=== PATIENT | male | born 1960 | race Caucasian/White ===

== ENCOUNTER 2018-03-07 01:07 | Observation (INO) ==
[2018-03-07 01:28] LABS: Baso # (Auto) 0.1 th/mm3 (0.0-0.2); Baso % (Auto) 0.8 % (0.0-2.0); Eos # (Auto) 0.2 th/mm3 (0.0-0.4); Eos % (Auto) 3.1 % (0.0-4.0); Hemoglobin 13.5 gm/dL (13.0-17.0); Lymph # (Auto) 1.2 th/mm3 (1.0-4.8); Mean Corpuscular HGB Conc 34.7 % (32.0-36.0); Mean Corpuscular Hemoglobin 33.2 pg (27.0-34.0); Mean Corpuscular Volume 95.7 fL (80.0-100.0); Mean Platelet Volume 7.9 fL (7.0-11.0); Mono # (Auto) 0.7 th/mm3 (0.0-0.9); Mono % (Auto) 9.6 % (0.0-8.0); Neut % (Auto) 69.5 % (16.0-70.0); Platelet Count 159 th/mm3 (150-450); Red Blood Count 4.07 mil/mm3 (4.50-5.90); Red Cell Distribution Width 12.9 % (11.6-17.2); White Blood Count 7.2 th/mm3 (4.0-11.0)
[2018-03-07 01:36] LABS: Activated Partial Thrombo Time 28.6 sec (23.4-31.7); Prothrombin Time 10.1 sec (9.8-11.6)
[2018-03-07 01:43] LABS: Carbon Dioxide 24.3 meq/L (21.0-32.0)
[2018-03-07 01:44] LABS: Calcium 8.8 mg/dL (8.5-10.1)
--- NOTE | 2018-03-07 01:49 | ED ---
HPI General Chief complaint: Medical Clearance Stated complaint: Medical Time Seen by Provider: 03/07/18 01:09 Source: patient Mode of arrival: ambulatory Limitations: no limitations History of Present Illness HPI narrative: The patient is a 58-year-old male who presents to the emergency department as a transfer from [facility] emergency department for a possible fractured penis. The patient states he injected medications earlier tonight into the penis in order to engage in intercourse. The patient states he was engaged in intercourse when suddenly the penis folded on itself and he has significant discomfort. The pain radiates into the scrotum. He does note there is bruising and ecchymosis of the shaft of the penis which is tender to palpation. The patient was diagnosed with presumed penile fracture and was transferred to [facility] for urology evaluation. The transferring physician did speak with the urologist who recommended an MRI of the penis with contrast. However, the patient is allergic to MRI contrast. Symptoms are moderate. Onset (ago): hour(s) Location: genitals Radiation: non-radiation Severity: moderate Severity scale (1-10): 7 Quality: other Pain Consistency: constant Relieving factors: none Exacerbating factors: other Associated symptoms: Reports denies other symptoms Treatments prior to arrival: Reports none Related Data Home Medications Medication Instructions Recorded Confirmed albuterol sulfate 2.5 mg INHALATION QID 03/06/18 03/07/18 albuterol sulfate [ProAir HFA] 1 puff INHALATION Q4-6H PRN 03/06/18 03/07/18 budesonide-formoterol [Symbicort] 2 puff INHALATION BID 03/06/18 03/07/18 cholecalciferol (vitamin D3) 2,000 units PO DAILY 03/06/18 03/07/18 [Vitamin D3] furosemide 20 mg PO DAILY 03/06/18 03/07/18 losartan 25 mg PO DAILY 03/06/18 03/07/18 nebivolol [Bystolic] 5 mg PO DAILY 03/06/18 03/07/18 omeprazole 40 mg PO DAILY 03/06/18 03/07/18 papaverine 30 mg IM PRN 03/06/18 03/07/18 spironolactone 25 mg PO DAILY 03/06/18 03/07/18 tadalafil [Cialis] 5 mg PO DAILY 03/06/18 03/07/18 tiotropium bromide [Spiriva 2 puff INHALATION DAILY 03/06/18 03/07/18 Respimat] atorvastatin 5 mg PO EVERY OTHER DAY 03/07/18 03/07/18 Allergies Allergy/AdvReac Type Severity Reaction Status Date / Time diatrizoate meglumine Allergy Severe Anaphylaxis Verified 03/07/18 01:13 gadobenic acid Allergy Severe Anaphylaxis Verified 03/07/18 01:13 gadodiamide Allergy Severe Anaphylaxis Verified 03/07/18 01:13 gadoteridol Allergy Severe Anaphylaxis Verified 03/07/18 01:13 iodixanol Allergy Severe Anaphylaxis Verified 03/07/18 01:13 iohexol Allergy Severe Anaphylaxis Verified 03/07/18 01:13 Review of Systems ROS: all other systems reviewed are negative [facility] Medical History Medical History Prostate cancer (Acute) CHF (congestive heart failure) (Acute) COPD (chronic obstructive pulmonary disease) (Acute) GERD (gastroesophageal reflux disease) (Acute) Hypertension (Acute) Surgical History Surgical History H/O knee surgery (Acute) H/O lithotripsy (Acute) H/O prostatectomy (Acute) History of appendectomy (Acute) Hx of tonsillectomy (Acute) Social History Social History Substance History: No History of Abuse Second Hand Smoke Exposure: No Smoking Status: Former smoker How Often Do You Have a Drink Containing Alcohol: 4 or more times a week Immunization History Tetanus Immunization: <5 Years Exam Narrative Exam Narrative: GENERAL: Awake, alert, pleasant 58-year-old male who appears his stated age and is in no acute respiratory distress. SKIN: Focused skin assessment warm/dry. HEAD: Atraumatic. Normocephalic. EYES: Pupils equal and round. No scleral icterus. No injection or drainage. ENT: No nasal bleeding or discharge. Mucous membranes pink and moist. NECK: Trachea midline. No JVD. CARDIOVASCULAR: Regular rate and rhythm. No murmur appreciated. RESPIRATORY: No accessory muscle use. Clear to auscultation. Breath sounds equal bilaterally. GASTROINTESTINAL: Abdomen soft, non-tender, nondistended. Genital: Patient has bruising and ecchymosis noted over the penile shaft. Both testicles are descended and nontender. Slight curvature of the penis to the left. MUSCULOSKELETAL: No obvious deformities. No clubbing. No cyanosis. No edema. NEUROLOGICAL: Awake and alert. No obvious cranial nerve deficits. Motor grossly within normal limits. Normal speech. PSYCHIATRIC: Appropriate mood and affect; insight and judgment normal. Course Initial Documented Vital Signs Temperature 97.6 F 03/07/18 01:13 Pulse Rate 70 03/07/18 01:13 Respiratory Rate 18 03/07/18 01:13 Blood Pressure 146/74 H 03/07/18 01:13 Pulse Oximetry 96 03/07/18 01:13 Last Documented Vital Signs Temperature 97.6 F 03/07/18 01:13 Pulse Rate 70 03/07/18 01:13 Respiratory Rate 18 03/07/18 01:13 Blood Pressure 146/74 H 03/07/18 01:13 Pulse Oximetry 96 03/07/18 01:13 Medical Decision Making MDM Narrative Medical decision making narrative: IV was established at the previous emergency department. Preoperative labs were sent in case surgery was needed. MRI of the pelvis was ordered, however, cannot be ordered with MRI contrast secondary to his allergy which is anaphylaxis with angioedema of the tongue. Laboratory evaluation was noted. MRI does reveal hemorrhage within the corpus cavernosum, I discussed the patient with the urologist who will call the operating room to schedule possible definitive surgical repair. He does state the patient will need to stay at least one night overnight, the patient has multiple medical problems including COPD, CHF, and hypertension. Therefore, after discussion with the urologist, the on-call medical service was paged for admission. The patient will be kept n.p.o. Medical Screen Exam Complete: Yes Emergency Medical Condition: Yes Differential Diagnosis Differential Diagnosis: Differential diagnosis includes penile fracture, urethral tear, penile injury. Lab Data Result diagrams: 03/07/18 01:19 03/07/18 01:19 Lab Results 03/07/18 03/07/18 03/07/18 Range/Units 01:19 01:19 01:19 WBC 7.2 (4.0-11.0) th/mm3 RBC 4.07 L (4.50-5.90) mil/mm3 Hgb 13.5 (13.0-17.0) gm/dL Hct 39.0 (39.0-51.0) % MCV 95.7 (80.0-100.0) fL MCH 33.2 (27.0-34.0) pg MCHC 34.7 (32.0-36.0) % RDW 12.9 (11.6-17.2) % Plt Count 159 (150-450) th/mm3 MPV 7.9 (7.0-11.0) fL Neut % (Auto) 69.5 (16.0-70.0) % Lymph % (Auto) 17.0 (9.0-44.0) % [place] % (Auto) 9.6 H (0.0-8.0) % Eos % (Auto) 3.1 (0.0-4.0) % Baso % (Auto) 0.8 (0.0-2.0) % Neut # (Auto) 5.0 (1.8-7.7) th/mm3 Lymph # (Auto) 1.2 (1.0-4.8) th/mm3 [place] # (Auto) 0.7 (0.0-0.9) th/mm3 Eos # (Auto) 0.2 (0.0-0.4) th/mm3 Baso # (Auto) 0.1 (0.0-0.2) th/mm3 WBC Differential . Differential Comment Auto diff final PT 10.1 (9.8-11.6) sec INR 1.0 Ratio APTT 28.6 (23.4-31.7) sec Sodium 140 (136-145) meq/L Potassium 4.0 (3.5-5.1) meq/L Chloride 106 (98-107) meq/L Carbon Dioxide 24.3 (21.0-32.0) meq/L Anion Gap 10 (5-15) meq/L BUN 12 (7-18) mg/dL Creatinine 1.05 (0.60-1.30) mg/dL Estimated GFR 72 L (>89) mL/min Random Glucose 97 (74-106) mg/dL Calcium 8.8 (8.5-10.1) mg/dL Imaging Data Radiologist's impression: Pelvis MRI 03/07/18 01:21 CONCLUSION: 1. 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 Significant surrounding hemorrhage and edema. Discharge Plan Discharge Disposition Patient Disposition: 30 Still Patient Discharge Condition Condition: Stable Discharge Details Diagnosis: Fracture of corpus cavernosum penis Physicians Team ED Provider: Dionicio Khan Primary Care Provider: UNKNOWN, Rxs /Orders / Referrals /Forms Prescriptions: No Action albuterol sulfate 2.5 mg /3 mL (0.083 %) Solution For Nebulization 2.5 mg INHALATION QID RF: 0 omeprazole 40 mg Capsule,Delayed Release(Dr/Ec) 40 mg PO DAILY RF: 0 spironolactone 25 mg Tablet 25 mg PO DAILY RF: 0 losartan 25 mg Tablet 25 mg PO DAILY RF: 0 furosemide 20 mg Tablet 20 mg PO DAILY RF: 0 albuterol sulfate [ProAir HFA] 90 mcg/actuation Hfa Aerosol Inhaler 1 puff INHALATION Q4-6H PRN (Reason: Erectile Dysfunction) RF: 0 papaverine 30 mg/mL Solution 30 mg IM PRN RF: 0 cholecalciferol (vitamin D3) [Vitamin D3] 1,000 unit Capsule 2,000 units PO DAILY RF: 0 tadalafil [Cialis] 5 mg Tablet 5 mg PO DAILY RF: 0 budesonide-formoterol [Symbicort] 160-4.5 mcg/actuation Hfa Aerosol Inhaler 2 puff INHALATION BID RF: 0 nebivolol [Bystolic] 5 mg Tablet 5 mg PO DAILY RF: 0 tiotropium bromide [Spiriva Respimat] 2.5 mcg/actuation Mist 2 puff INHALATION DAILY RF: 0 atorvastatin 10 mg Tablet 5 mg PO EVERY OTHER DAY RF: 0 Status ED Status: Pending Admission
[2018-03-07] MEDS ORDERED: Morphine Inj 4 MG/ML Vial IV.PUSH ONE (03:27)
--- NOTE | 2018-03-07 03:30 | MR ---
INDICATIONS: . Fractured penis. Pain and swelling after injury. CLINICAL DATA: This is the patient's initial encounter. Patient reports that signs and symptoms have been present for 1 day and indicates a pain score of 7/10. MEDICAL/SURGICAL HISTORY: Chronic obstructive pulmonary disease. Congestive heart failure. Ca rcinoma, prostatic. GRRD. Hypertension. Prostatectomy. Appendectomy. Tonsillectomy. Knee surger y. COMPARISON: No prior exams available for comparison. TECHNIQUE: Multiplanar, multisequence MRI examination was performed without contrast. FINDINGS: Bowel/Mesentery: The bowel loops are grossly unremarkable. The perisigmoid fat is intact. Bladder: Contours are smooth. No filling defects are seen. Retroperitoneum: No evidence of deep pelvic adenopathy. The fat planes about the pelvic sidewalls ar e intact. Reproductive Organs: There is significant edema and hemorrhage within the penis. On the axial images there is a 16 mm focal defect involving the right side of the corpus cavernosum. That small area beco mes a rounded central collection measuring 3.2 x 2.4 cm (series 5 image 13). There is significant miguel a rounding hemorrhage and edema Inguinal: Grossly unremarkable. Bony Structures: There is normal signal in the marrow of the osseous structures of the pelvis. Free Fluid: None seen. CONCLUSION: 1. 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 S ignificant surrounding hemorrhage and edema. Electronically signed by: Real Blair MD 03/07/2018 3:28 AM EST
[2018-03-07] MEDS ORDERED: Morphine Sulfate Inj 2 MG/ML Vial IV.PUSH PRN (04:02)
[2018-03-07] MEDS ORDERED: Bisacodyl 10 MG Supp RECTAL PRN (04:04)
[2018-03-07] MEDS ORDERED: Acetaminophen 325 MG Tablet PO PRN (04:04)
[2018-03-07] MEDS ORDERED: Bupivacaine/Epinephrine Inj 0.25% 50 ML Vial ONE (04:24)
[2018-03-07] MEDS ORDERED: Sodium Chloride 0.9% 2 ML Flush PRN IV.FLUSH (04:47)
[2018-03-07] MEDS ORDERED: Sugammadex Inj 200 MG/2 ML Vial IV.PUSH ONE (04:48)
[2018-03-07] MEDS ORDERED: Lidocaine PF 1% Inj 5 ML Syringe OTHER ONE (05:05)
--- NOTE | 2018-03-07 05:15 | P.CONURO ---
History of Present Illness Service: Urology Consult date: 03/07/18 Reason for Consult: Penile Fx Primary Care Provider: UNKNOWN History of Present Illness: 58yo male with history of prostate cancer treated with prostatectomy as well as radiation therapy now with recent penile fracture. Patient was engaging in sexual intercourse with his last night with the use of Intracavernosal injections for ED. Patient hit the pelvis of his , resulting in severe pain and bruisig with significant edema. The erection did not immediately go down. No fevers. No void since injury. Review of Systems All other systems reviewed negative except as stated in HPI [facility] - History History Provided By: Patient - Medical History Medical History: Medical History (Last Updated 03/07/18 @ 01:17 by Kimberlee Parkinson RN) Prostate cancer CHF (congestive heart failure) COPD (chronic obstructive pulmonary disease) GERD (gastroesophageal reflux disease) Hypertension - Surgical History Surgical History: Surgical History (Last Updated 03/07/18 @ 02:12 by Kimberlee Parkinson RN) H/O knee surgery H/O lithotripsy H/O prostatectomy History of appendectomy Hx of tonsillectomy - Tobacco History Second Hand Smoke Exposure: No Smoking Status: Former smoker - Alcohol History How Often Do You Have a Drink Containing Alcohol: 4 or more times a week - Substance Use History Substance History: No History of Abuse - Immunization History Tetanus Immunization: <5 Years Medications and Allergies Active Medications: Active Medications Acetaminophen (Tylenol) 650 mg PO Q4H PRN PRN Reason: Temp > 100.4 Al Hydroxide/Mg Hydroxide (Milk Of Magnesia Liq) 30 ml PO Q12H PRN PRN Reason: Mild Constipation Albuterol (Duoneb Neb (Prn)) 1 ampul NEB Q4HR NEB PRN PRN Reason: SOB/WHEEZING Bisacodyl (Dulcolax Supp) 10 mg RECTAL DAILY PRN PRN Reason: SEVERE CONSITIPATION Budesonide/Formoterol Fumarate (Symbicort 160/4.5 Mcg Inh) 2 puff INH BID [facility] Furosemide (Lasix) 20 mg PO DAILY [facility] Sodium Chloride (Ns Inj) 1,000 mls @ 100 mls/hr IV.CONT .Q10H [facility] Lactulose (Lactulose Liq) 30 ml PO DAILY PRN PRN Reason: SEVERE CONSITIPATION Losartan Potassium (Cozaar) 25 mg PO DAILY [facility] Morphine Sulfate (Morphine Inj) 2 mg IV.PUSH Q4H PRN PRN Reason: PAIN 6-10 Nebivolol (Bystolic) 5 mg PO DAILY [facility] Ondansetron HCl (Zofran Inj) 4 mg IV.PUSH Q6H PRN PRN Reason: NAUSEA OR VOMITING Pantoprazole Sodium (Protonix) 40 mg PO DAILY [facility] Pt Own: Tiotropium [place] ( Spiriva Respimat) 2.5mcg/Actuation Mist 0 each INH DAILY [facility] Senna/Docusate Sodium (Shaneka-Colace) 1 tab PO BID [facility] Sennosides (Senokot) 17.2 mg PO Q12H PRN PRN Reason: Moderate Constipation Sodium Chloride (Ns Flush) 2 ml IV.FLUSH BID [facility] Sodium Chloride (Ns Flush) 2 ml IV.FLUSH PRN PRN PRN Reason: FLUSH AFTER USING IV ACCESS Spironolactone (Aldactone) 25 mg PO DAILY [facility] Allergies Allergy/AdvReac Type Severity Reaction Status Date / Time diatrizoate meglumine Allergy Severe Anaphylaxis Verified 03/07/18 01:13 gadobenic acid Allergy Severe Anaphylaxis Verified 03/07/18 01:13 gadodiamide Allergy Severe Anaphylaxis Verified 03/07/18 01:13 gadoteridol Allergy Severe Anaphylaxis Verified 03/07/18 01:13 iodixanol Allergy Severe Anaphylaxis Verified 03/07/18 01:13 iohexol Allergy Severe Anaphylaxis Verified 03/07/18 01:13 Home Medications Medication Instructions Recorded Confirmed Type albuterol sulfate 2.5 mg INHALATION QID 03/06/18 03/07/18 History albuterol sulfate [ProAir HFA] 1 puff INHALATION Q4-6H PRN 03/06/18 03/07/18 History budesonide-formoterol [Symbicort] 2 puff INHALATION BID 03/06/18 03/07/18 History cholecalciferol (vitamin D3) 2,000 units PO DAILY 03/06/18 03/07/18 History [Vitamin D3] furosemide 20 mg PO DAILY 03/06/18 03/07/18 History losartan 25 mg PO DAILY 03/06/18 03/07/18 History nebivolol [Bystolic] 5 mg PO DAILY 03/06/18 03/07/18 History omeprazole 40 mg PO DAILY 03/06/18 03/07/18 History papaverine 30 mg IM PRN 03/06/18 03/07/18 History spironolactone 25 mg PO DAILY 03/06/18 03/07/18 History tadalafil [Cialis] 5 mg PO DAILY 03/06/18 03/07/18 History tiotropium bromide [Spiriva 2 puff INHALATION DAILY 03/06/18 03/07/18 History Respimat] atorvastatin 5 mg PO EVERY OTHER DAY 03/07/18 03/07/18 History Physical Exam Vital Signs - 24 hr 03/07/18 01:13 03/07/18 03:58 03/07/18 04:34 Temperature 97.6 F 98.9 F Pulse Rate 70 74 Respiratory Rate 18 Blood Pressure 146/74 H 146/68 H Pulse Oximetry 96 97 Physical Exam: GENERAL: This is a well-nourished, well-developed patient, in no apparent distress. SKIN: No rashes, ecchymoses or lesions. Cool and dry. HEAD: Atraumatic. Normocephalic. EYES: Extraocular motions intact. No scleral icterus. No injection or drainage. ENT: Nose without bleeding, purulent drainage. Airway patent. NECK: Trachea midline. No JVD or lymphadenopathy. CARDIOVASCULAR: Normal pulse RESPIRATORY: Nonlabored GASTROINTESTINAL: Abdomen soft, non-tender, nondistended. GENITOURINARY: Severe ecchymosis and tenderness MUSCULOSKELETAL: Extremities without clubbing, cyanosis, or edema. NEUROLOGICAL: Awake and alert. Motor and sensory grossly within normal limits. Normal speech. Lab results reviewed: Yes Laboratory Results - last 24 hr 03/07/18 03/07/18 03/07/18 01:19 01:19 01:19 WBC 7.2 RBC 4.07 L Hgb 13.5 Hct 39.0 MCV 95.7 MCH 33.2 MCHC 34.7 RDW 12.9 Plt Count 159 MPV 7.9 Neut % (Auto) 69.5 Lymph % (Auto) 17.0 [place] % (Auto) 9.6 H Eos % (Auto) 3.1 Baso % (Auto) 0.8 Neut # (Auto) 5.0 Lymph # (Auto) 1.2 [place] # (Auto) 0.7 Eos # (Auto) 0.2 Baso # (Auto) 0.1 WBC Differential . Differential Comment Auto diff final PT 10.1 INR 1.0 APTT 28.6 Sodium 140 Potassium 4.0 Chloride 106 Carbon Dioxide 24.3 Anion Gap 10 BUN 12 Creatinine 1.05 Estimated GFR 72 L Random Glucose 97 Calcium 8.8 Result Diagrams: 03/07/18 01:19 03/07/18 01:19 Personally reviewed images: Yes Imaging: ITS Impressions Pelvis MRI 03/07/18 01:21 CONCLUSION: 1. 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 Significant surrounding hemorrhage and edema. Assessment and Plan - Assessment (1) Penile fracture Code(s): S39.840A - Fracture of corpus cavernosum penis, initial encounter Status: Acute - Plan -To the OR for emergent Penile fracture repair -Discussed the risks of the procedure, which include the risk of bleeding, pain , infection, as well as penile curvature, inability to achieve erections, decreased sensation, poor cosmetic outcome, and prolonged catheter.
[2018-03-07] MEDS ORDERED: Bupivacaine PF 0.25% Inj 30 ML Vial ONE (05:58)
--- NOTE | 2018-03-07 06:42 | P.PNURO ---
Subjective Patient symptoms today: Successful Penile fracture repair. Defect noted in the right proximal corpora. No urethral injury, schmidt placed without difficulty. Drain left in scrotum. -Maintain schmidt catheter -Talia drain in place -Will followup tomorrow am for possible schmidt and drain removal Objective Vital Signs: Vital Signs 03/07/18 01:13 03/07/18 03:58 03/07/18 04:34 Temperature 97.6 F 98.9 F Pulse Rate 70 74 Respiratory Rate 18 Blood Pressure 146/74 H 146/68 H Pulse Oximetry 96 97 Intake & Output 03/06/18 03/06/18 03/07/18 06:59 18:59 06:59 Intake Total 1000 / 1000 Output Total 775 / 775 Balance 225 / 225 Weight 93.44 kg Intake: Anesthesia Amount 1000 / 1000 Output: Estimated Blood Loss 175 / 175 Urine Amount (Catheter) 600 / 600 Indwelling Urethral Catheter 600 / 600 Result Diagrams: 03/07/18 01:19 03/07/18 01:19 Imaging: Impressions Pelvis MRI 03/07/18 01:21 CONCLUSION: 1. 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 Significant surrounding hemorrhage and edema. Medications and IVs: Active Medications Generic Name Dose Route Start Last Admin Trade Name Freq PRN Reason Stop Dose Admin Acetaminophen 650 mg 03/07/18 04:04 Tylenol PO Q4H PRN Temp > 100.4 Al Hydroxide/Mg Hydroxide 30 ml 03/07/18 04:04 Milk Of Magnesia Liq PO Q12H PRN Mild Constipation Albuterol 1 ampul 03/07/18 04:03 Duoneb Neb (Prn) NEB Q4HR NEB PRN SOB/WHEEZING Bisacodyl 10 mg 03/07/18 04:04 Dulcolax Supp RECTAL DAILY PRN SEVERE CONSITIPATION Budesonide/Formoterol Fumarate 2 puff 03/07/18 09:00 Symbicort 160/4.5 Mcg Inh INH BID [facility] Furosemide 20 mg 03/07/18 09:00 Lasix PO DAILY [facility] Sodium Chloride 1,000 mls @ 100 mls/hr 03/07/18 04:15 Ns Inj IV.CONT .Q10H [facility] Cefazolin Sodium 2,000 mg/ 100 mls @ 200 mls/hr 03/07/18 07:00 Sodium Chloride IV.SIG 03/08/18 23:59 Q8H [facility] Lactulose 30 ml 03/07/18 04:04 Lactulose Liq PO DAILY PRN SEVERE CONSITIPATION Losartan Potassium 25 mg 03/07/18 09:00 Cozaar PO DAILY [facility] Morphine Sulfate 2 mg 03/07/18 04:02 Morphine Inj IV.PUSH Q4H PRN PAIN 6-10 Nebivolol 5 mg 03/07/18 09:00 Bystolic PO DAILY [facility] Ondansetron HCl 4 mg 03/07/18 04:04 Zofran Inj IV.PUSH Q6H PRN NAUSEA OR VOMITING Pantoprazole Sodium 40 mg 03/07/18 09:00 Protonix PO DAILY [facility] Pt Own: Tiotropium 0 each 03/07/18 09:00 [place] ( Spiriva INH Respimat) 2.5mcg/ DAILY [facility] Actuation Mist Senna/Docusate Sodium 1 tab 03/07/18 09:00 Shaneka-Colace PO BID [facility] Sennosides 17.2 mg 03/07/18 04:04 Senokot PO Q12H PRN Moderate Constipation Sodium Chloride 2 ml 03/07/18 09:00 Ns Flush IV.FLUSH BID [facility] Sodium Chloride 2 ml 03/07/18 04:47 Ns Flush IV.FLUSH PRN PRN FLUSH AFTER USING IV ACCESS Spironolactone 25 mg 03/07/18 09:00 Aldactone PO DAILY [facility] Assessment and Plan - Assessment (1) Penile fracture Code(s): S39.840A - Fracture of corpus cavernosum penis, initial encounter Status: Acute - Plan -To the OR for emergent Penile fracture repair -Discussed the risks of the procedure, which include the risk of bleeding, pain , infection, as well as penile curvature, inability to achieve erections, decreased sensation, poor cosmetic outcome, and prolonged catheter.
[2018-03-07] MEDS ORDERED: fentaNYL Citrate Inj 100 MCG/2 ML Ampul ONE (06:52)
[2018-03-07] MEDS ORDERED: ceFAZolin Inj 2,000 MG in Sodium Chlor 0.9% Inj 80 ML IV.SIG SCH (07:00)
[2018-03-07] MEDS ORDERED: TIOTROPIUM BROMIDE INH SCH (09:00)
[2018-03-07] MEDS: Spironolactone 25 MG Tablet PO SCH (09:19)
[2018-03-07] MEDS: Furosemide 20 MG Tablet PO SCH (09:19)
[2018-03-07] MEDS: Sodium Chloride 0.9% 2 ML Flush BID IV.FLUSH SCH ×2 (09:20→20:52)
[2018-03-07] MEDS: Budesonide-Formoterol 160/4.5 MCG 6 GM Inhaler INH SCH ×2 (09:20→20:51)
[2018-03-07] MEDS: Sod Chloride 0.9% Inj 1,000 ML IV.CONT SCH ×3 (09:22→18:23)
[2018-03-07] MEDS: ceFAZolin 2 GM Premix Inj 2 GM/50 ML PIGGYBACK IV.SIG SCH ×3 (09:22→22:03)
[2018-03-07] MEDS: Senna/Docusate Sodium 8.6/50 MG Tablet PO SCH ×2 (09:24→20:52)
--- NOTE | 2018-03-07 12:16 | MR ---
cc: Lio Mcneil MD DATE: 03/07/2018 DATE OF OPERATION: 03/07/2018 PREOPERATIVE DIAGNOSIS: Penile fracture. POSTOPERATIVE DIAGNOSIS: Penile fracture. SURGEON: Lio Mcneil MD PROCEDURE PERFORMED: Repair of penile fracture. PERTINENT FINDINGS: 1. Large right proximal corporal defect. This was successfully repaired with 3-0 Monocryl sutures. 2. No urethral defect identified. 3. Successful placement of Grant catheter without difficulty in the OR. 4. [place] drain in place to allow drainage and healing. HISTORY OF PRESENT ILLNESS: Prudencio Cruz is a 66-year-old male who has a history of prostate cancer, uses intracavernosal injection therapy for sexual activity. During sexual activity today, he struck the penis resulting in significant pain and swelling with ecchymosis. The patient presented to the emergency department where an MRI identified a break in the right corpora. We discussed penile fracture repair and the risks of pain, bleeding, infection, penile curvature, decreased erections, prolonged catheterization, or decreased sensation. The patient understands and agrees to proceed forward with the operation. PROCEDURE IN DETAIL: After proper informed consent was obtained, the patient was brought to the operating room and placed supine on the operating table. The patient was placed under general anesthesia. The patient was placed in the supine position, prepped and draped in standard fashion using standard sterile fashion, after an appropriate timeout was completed. A Grant catheter was successfully inserted without any resistance and clear yellow urine returned. The balloon was inflated to 10 mL. At this point, a penoscrotal incision was made and immediately encountered was a large hematoma. Hematoma was evacuated and sharp dissection was carried down to the level of the urethra and corpora. The left corporal body appeared normal and intact, with the urethra appearing normal intact as well. The right corporal body, however, in the proximal portion had a significant defect measuring approximately 2 cm in largest diameter. After evacuating all hematoma, a 3-0 Monocryl suture was then used to close this defect in a running fashion with a few interrupted sutures in between. The defect came together nicely with no evidence of bleeding noted at the end of repair. At this point, meticulous hemostasis was then achieved throughout. Any remaining hematoma was evacuated. A [place] drain was placed at the base of the penis and the incision was then closed in 2 layers with dartos and skin using Vicryl sutures, followed by Monocryl for the skin. The [place] drain was secured in place, dressings were then applied. The patient was then awoken from anesthesia and taken to the PACU in good and stable condition. The patient tolerated the procedure well with no complications. DISPOSITION: The patient is to maintain Grant catheter as well as [place] drain overnight. He will maintain admitted for overnight observation, eventual discharge the following day. MD MIRNA Yates/lc , 06:46 AM , 06:54 AM
--- NOTE | 2018-03-07 13:12 | P.HPIM ---
History of Present Illness Primary Care Physician: Report of-year-old male, prostate cancer status post prostatectomy, hypertension, and reflux disease presenting to emergency department as a transfer from the [place] for acute penile pain. Patient reports recent intercourse day prior with at which point he noted that he had recently taken medication for erectile dysfunction shortly afterward developed pain and swelling in the penis area which did not resolve prompting him to seek medical attention. In emergency department patient was evaluated by urology and taken urgently for penile fracture repair with placement of drainage tubing and Grant catheter. At this moment patient is denying pain, nausea, vomiting, fever, or chills. Review of systems also negative for chest pain, wheezing, shortness of breath, back pain. Allergy: MRI contract (swelling of neck and difficulty breathing) Social history: Lives with , former smoker 1 pack/day for 43 years and quit 18 months ago, daily alcohol use with beer (3 beers daily) Surgical history: Prostate cancer status post prostatectomy, left knee repair, tonsillectomy, penile fracture repair (03/07 2018) Family history: No history of neurological disease. No hypertension or diabetes Medication: Reviewed with patient in detail see EMR for details. Diagnosis (1) Penile fracture: (2) Hypertension: (3) COPD (chronic obstructive pulmonary disease): (4) On home O2: (5) Vitamin D deficiency: Review of Systems Review of Systems: all other systems reviewed are negative [facility] Medical History Medical History Prostate cancer (Acute) CHF (congestive heart failure) (Acute) COPD (chronic obstructive pulmonary disease) (Acute) GERD (gastroesophageal reflux disease) (Acute) Hypertension (Acute) Surgical History Surgical History H/O knee surgery (Acute) H/O lithotripsy (Acute) H/O prostatectomy (Acute) History of appendectomy (Acute) Hx of tonsillectomy (Acute) Social History Social History Substance History: No History of Abuse Second Hand Smoke Exposure: No Smoking Status: Former smoker How Often Do You Have a Drink Containing Alcohol: 4 or more times a week Immunization History Tetanus Immunization: <5 Years Medications and Allergies Allergies Allergy/AdvReac Type Severity Reaction Status Date / Time diatrizoate meglumine Allergy Severe Anaphylaxis Verified 03/07/18 01:13 gadobenic acid Allergy Severe Anaphylaxis Verified 03/07/18 01:13 gadodiamide Allergy Severe Anaphylaxis Verified 03/07/18 01:13 gadoteridol Allergy Severe Anaphylaxis Verified 03/07/18 01:13 iodixanol Allergy Severe Anaphylaxis Verified 03/07/18 01:13 iohexol Allergy Severe Anaphylaxis Verified 03/07/18 01:13 Home Medications Medication Instructions Recorded Confirmed Type albuterol sulfate 2.5 mg INHALATION QID 03/06/18 03/07/18 History albuterol sulfate [ProAir HFA] 1 puff INHALATION Q4-6H PRN 03/06/18 03/07/18 History budesonide-formoterol [Symbicort] 2 puff INHALATION BID 03/06/18 03/07/18 History cholecalciferol (vitamin D3) 2,000 units PO DAILY 03/06/18 03/07/18 History [Vitamin D3] furosemide 20 mg PO DAILY 03/06/18 03/07/18 History losartan 25 mg PO DAILY 03/06/18 03/07/18 History nebivolol [Bystolic] 5 mg PO DAILY 03/06/18 03/07/18 History omeprazole 40 mg PO DAILY 03/06/18 03/07/18 History papaverine 30 mg IM PRN 03/06/18 03/07/18 History spironolactone 25 mg PO DAILY 03/06/18 03/07/18 History tadalafil [Cialis] 5 mg PO DAILY 03/06/18 03/07/18 History tiotropium bromide [Spiriva 2 puff INHALATION DAILY 03/06/18 03/07/18 History Respimat] atorvastatin 5 mg PO EVERY OTHER DAY 03/07/18 03/07/18 History Active Medications: Active Medications Acetaminophen (Tylenol) 650 mg PO Q4H PRN PRN Reason: Temp > 100.4 Al Hydroxide/Mg Hydroxide (Milk Of Magnesia Liq) 30 ml PO Q12H PRN PRN Reason: Mild Constipation Albuterol (Duoneb Neb (Prn)) 1 ampul NEB Q4HR NEB PRN PRN Reason: SOB/WHEEZING Last Admin: 03/07/18 12:15 Dose: 1 ampul Bisacodyl (Dulcolax Supp) 10 mg RECTAL DAILY PRN PRN Reason: SEVERE CONSITIPATION Budesonide/Formoterol Fumarate (Symbicort 160/4.5 Mcg Inh) 2 puff INH BID [facility] Last Admin: 03/07/18 09:20 Dose: 2 puff Furosemide (Lasix) 20 mg PO DAILY [facility] Last Admin: 03/07/18 09:19 Dose: 20 mg Sodium Chloride (Ns Inj) 1,000 mls @ 100 mls/hr IV.CONT .Q10H [facility] Last Admin: 03/07/18 09:22 Dose: 100 mls/hr Cefazolin Sodium/Dextrose (Ancef 2 Gm Premix Inj) 2 gm in 50 mls @ 100 mls/hr IV.SIG Q8H [facility] Stop: 03/08/18 23:29 Last Infusion: 03/07/18 09:54 Dose: Infused Lactulose (Lactulose Liq) 30 ml PO DAILY PRN PRN Reason: SEVERE CONSITIPATION Losartan Potassium (Cozaar) 25 mg PO DAILY [facility] Last Admin: 03/07/18 09:19 Dose: 25 mg Miscellaneous Information (Misc Nursing Information) 0 each OTHER UNSCH PRN PRN Reason: SEE LABEL COMMENTS Stop: 03/08/18 07:07 Morphine Sulfate (Morphine Inj) 2 mg IV.PUSH Q4H PRN PRN Reason: PAIN 6-10 Nebivolol (Bystolic) 5 mg PO DAILY [facility] Last Admin: 03/07/18 09:19 Dose: 5 mg Ondansetron HCl (Zofran Inj) 4 mg IV.PUSH Q6H PRN PRN Reason: NAUSEA OR VOMITING Oxycodone/Acetaminophen (Percocet 5/325 Mg) 2 tab PO Q6H PRN PRN Reason: PAIN 1-10 AND/OR FEVER >101F Last Admin: 03/07/18 09:18 Dose: 2 tab Pantoprazole Sodium (Protonix) 40 mg PO DAILY [facility] Last Admin: 03/07/18 09:19 Dose: 40 mg Pt Own: Tiotropium [place] ( Spiriva Respimat) 2.5mcg/Actuation Mist 0 each INH DAILY [facility] Senna/Docusate Sodium ([place]-Colace) 1 tab PO BID [facility] Last Admin: 03/07/18 09:24 Dose: 1 tab Sennosides (Senokot) 17.2 mg PO Q12H PRN PRN Reason: Moderate Constipation Sodium Chloride (Ns Flush) 2 ml IV.FLUSH BID [facility] Last Admin: 03/07/18 09:20 Dose: 2 ml Sodium Chloride (Ns Flush) 2 ml IV.FLUSH PRN PRN PRN Reason: FLUSH AFTER USING IV ACCESS Spironolactone (Aldactone) 25 mg PO DAILY [facility] Last Admin: 03/07/18 09:19 Dose: 25 mg Physical Exam Vital signs: Last Vital Signs Temp 97.9 F 03/07/18 12:00 Pulse 67 03/07/18 12:16 Resp 16 03/07/18 12:16 BP 117/57 L 03/07/18 12:00 Pulse Ox 94 L 03/07/18 12:16 Intake & Output 03/05/18 03/06/18 03/07/18 03/08/18 06:59 06:59 06:59 06:59 Intake Total 1000 / 1000 50 / 50 Output Total 775 / 775 200 / 200 Balance 225 / 225 -150 / -150 Weight 93.44 kg General: No acute distress, conversational Cardiovascular: S1/S2 Respiratory: Clear to auscultation without wheezing, rales, rhonchi Gastroenterology: Soft, nontender, nondistended, no guarding or rebound appreciated. Urology: Status post penile repair with dressing and placed. Grant draining yellow urine. Extremity: No calf tenderness, no edema, 2+ dorsalis pedis pulse and radial pulse bilaterally. Results Labs CBC & Chem 7: 03/07/18 01:19 03/07/18 01:19 Imaging Impressions Pelvis MRI 03/07/18 01:21 CONCLUSION: 1. 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 Significant surrounding hemorrhage and edema. Caprini VTE Risk Assessment Caprini VTE Risk Assessment: Moderate/High Risk (score >= 2) (hold a/c due to penile hematoma. scd) Caprini Risk Assessment Model: Point Value = 1 Point Value = 2 Point Value = 3 Point Value = 5 Age 41-60 Minor surgery BMI > 25 kg/m2 Swollen legs Varicose veins or History of unexplained or recurrent spontaneous Oral contraceptives or hormone replacement Sepsis (< 1 month) Serious lung disease, including pneumonia (< 1 month) Abnormal pulmonary function Acute myocardial infarction Congestive heart failure (< 1 month) History of inflammatory bowel disease Medical patient at bed rest Age 61-74 Arthroscopic surgery Major open surgery (> 45 min) Laparoscopic surgery (> 45 min) Malignancy Confined to bed (> 72 hours) Immobilizing plaster cast Central venous access Age >= 75 History of VTE Family history of VTE Factor V Leiden Prothrombin [id number] Lupus anticoagulant Anticardiolipin antibodies Elevated serum homocysteine Heparin-induced thrombocytopenia Other congenital or acquired thrombophilia Stroke (< 1 month) Elective arthroplasty Hip, pelvis, or leg fracture Acute spinal cord injury (< 1 month) Prophylaxis Regimen: Total Risk Factor Score Risk Level Prophylaxis Regimen 0-1 Low Early ambulation 2 Moderate Order ONE of the following: *Sequential Compression Device (SCD) *Heparin 5000 units SQ BID 3-4 Higher Order ONE of the following medications: *Heparin 5000 units SQ TID *Enoxaparin/Lovenox 40 mg SQ daily (WT < 150 kg, CrCl > 30 mL/min) *Enoxaparin/Lovenox 30 mg SQ daily (WT < 150 kg, CrCl > 10-29 mL/min) *Enoxaparin/Lovenox 30 mg SQ BID (WT < 150 kg, CrCl > 30 mL/min) AND/OR *Sequential Compression Device (SCD) 5 or more Highest Order ONE of the following medications: *Heparin 5000 units SQ TID (Preferred with Epidurals) *Enoxaparin/Lovenox 40 mg SQ daily (WT < 150 kg, CrCl > 30 mL/min) *Enoxaparin/Lovenox 30 mg SQ daily (WT < 150 kg, CrCl > 10-29 mL/min) *Enoxaparin/Lovenox 30 mg SQ BID (WT < 150 kg, CrCl > 30 mL/min) AND *Sequential Compression Device (SCD) Assessment and Plan (1) Penile fracture: Code(s): S39.840A - Fracture of corpus cavernosum penis, initial encounter Status: Acute (2) Hypertension: Code(s): I10 - Essential (primary) hypertension Status: Acute (3) COPD (chronic obstructive pulmonary disease): Code(s): J44.9 - Chronic obstructive pulmonary disease, unspecified Status: Acute (4) On home O2: Code(s): Z99.81 - Dependence on supplemental oxygen Status: Acute (5) Vitamin D deficiency: Code(s): E55.9 - Vitamin D deficiency, unspecified Status: Acute Plan Urology: Penile fracture Urology consulted recommendations appreciated. Patient is status post surgery on 03/07 for repair Continue Grant catheter placement for now Anti-inflammatory medication for any pain and swelling - hold cialis Cardiology: Hypertension, HLD Continue furosemide for fluid balance - Continue spinal lactone 25 mg daily Continue nebivolol 5 mg daily - Continue statin 5mg qOD Pulmonary: COPD 18 oxygen saturation between 88-92%. Patient home regimen is 2 L of nasal cannula oxygen at bedtime Home regimen includes albuterol nebulizer 4 times daily with Tiotropium qD Psychiatry: Alcohol use No evidence of acute alcohol withdrawal on physical examination as patient did not demonstrate asterixis. Patient denied nausea, vomiting, chest pain, shortness of breath, diaphoresis. Continue to monitor for signs of acute alcohol withdrawal and consider addition of ciwa if needed CODE STATUS: Full code Disposition: Medical service and possible discharge in the morning with eventual urology follow up outpatient diet: Regular diet DVT prophylaxis: SCD ( penile hemorrhage) _ (1) Penile fracture Qualifiers: Encounter type:
[2018-03-07] MEDS: Tiotropium Bromide 18 MCG/ACT Inhaler INH SCH (14:56)
--- NOTE | 2018-03-07 15:17 | ECG ---
Date Performed: 03/07/2018 Time Performed: 04:08:54 PTAGE: 58 years EKG: Sinus rhythm INCOMPLETE RIGHT BUNDLE BRANCH BLOCK LEFT ANTERIOR FASCICULAR BLOCK ABNORMAL ECG INTERPRETATION BASE D ON A DEFAULT AGE OF 38 YEARS PREVIOUS TRACING : 12/19/2015 08.36 Since the previous tracing, no significant change not ed DOCTOR: Gregory Michaud Interpretating Date/Time 03/07/2018 15:16:04
[2018-03-08] MEDS: Sod Chloride 0.9% Inj 1,000 ML IV.CONT SCH ×3 (03:57→22:02)
[2018-03-08] MEDS: ceFAZolin 2 GM Premix Inj 2 GM/50 ML PIGGYBACK IV.SIG SCH ×2 (06:13→16:00)
[2018-03-08 07:23] LABS: Baso % (Auto) 0.4 % (0.0-2.0); Eos # (Auto) 0.1 th/mm3 (0.0-0.4); Eos % (Auto) 1.5 % (0.0-4.0); Hematocrit 32.7 % (39.0-51.0); Hemoglobin 11.2 gm/dL (13.0-17.0); Lymph # (Auto) 1.1 th/mm3 (1.0-4.8); Lymph % (Auto) 20.8 % (9.0-44.0); Mean Corpuscular HGB Conc 34.3 % (32.0-36.0); Mean Corpuscular Hemoglobin 33.3 pg (27.0-34.0); Mean Corpuscular Volume 97.2 fL (80.0-100.0); Mean Platelet Volume 8.4 fL (7.0-11.0); Mono # (Auto) 0.5 th/mm3 (0.0-0.9); Mono % (Auto) 9.9 % (0.0-8.0); Neut # (Auto) 3.6 th/mm3 (1.8-7.7); Neut % (Auto) 67.4 % (16.0-70.0); Platelet Count 131 th/mm3 (150-450); Red Blood Count 3.36 mil/mm3 (4.50-5.90); Red Cell Distribution Width 13.1 % (11.6-17.2); White Blood Count 5.4 th/mm3 (4.0-11.0)
[2018-03-08 08:03] LABS: Albumin 3.2 g/dL (3.4-5.0); Anion Gap 4 meq/L (5-15); Aspartate Aminotransferase 14 U/L (15-37); Blood Urea Nitrogen 11 mg/dL (7-18); Calcium 8.2 mg/dL (8.5-10.1); Carbon Dioxide 29.1 meq/L (21.0-32.0); Chloride 109 meq/L (98-107); Glomerular Filtration Rate 88 mL/min (>89); Glucose,Random 95 mg/dL (74-106); Potassium 4.1 meq/L (3.5-5.1); Sodium 142 meq/L (136-145)
[2018-03-08 08:06] LABS: Alanine Aminotransferase 27 U/L (12-78); Alkaline Phosphatase 43 U/L (45-117); Total Protein 5.6 g/dL (6.4-8.2)
[2018-03-08] MEDS: Furosemide 20 MG Tablet PO SCH (09:00)
[2018-03-08] MEDS: Senna/Docusate Sodium 8.6/50 MG Tablet PO SCH ×2 (09:00→21:58)
[2018-03-08] MEDS: Spironolactone 25 MG Tablet PO SCH (09:00)
[2018-03-08] MEDS: Tiotropium Bromide 18 MCG/ACT Inhaler INH SCH (09:01)
[2018-03-08] MEDS: Sodium Chloride 0.9% 2 ML Flush BID IV.FLUSH SCH ×2 (09:01→22:02)
[2018-03-08] MEDS: Budesonide-Formoterol 160/4.5 MCG 6 GM Inhaler INH SCH ×2 (09:02→22:01)
--- NOTE | 2018-03-08 14:35 | P.PNURO ---
Subjective Patient symptoms today: pt is s/o successful repair of the penile fracture on Thursday. Was seen at bedside today no new issues. no pain, Grant drains clear yellow urine. no f/c /n/v, labs are stable. Objective Vital Signs: Vital Signs 03/07/18 16:00 03/07/18 16:44 03/07/18 20:00 Temperature 97.9 F 98.5 F Pulse Rate 64 77 71 Respiratory Rate 18 16 18 Blood Pressure 113/63 105/53 L Pulse Oximetry 96 94 L 03/07/18 20:36 03/08/18 00:00 03/08/18 07:00 Temperature 98.2 F Pulse Rate 71 68 71 Respiratory Rate 15 15 20 Blood Pressure 104/58 L Pulse Oximetry 94 L 03/08/18 08:00 03/08/18 08:16 03/08/18 12:00 Temperature 97.8 F 98.5 F Pulse Rate 67 66 Respiratory Rate 19 18 Blood Pressure 121/60 116/53 L Pulse Oximetry 93 L 94 L 95 Intake & Output 03/07/18 03/08/18 03/08/18 18:59 06:59 18:59 Intake Total 1000 / 1000 1310 / 1310 50 / 50 Output Total 2300 / 2300 1725 / 1725 Balance -1300 / -1300 -415 / -415 50 / 50 Weight 96.7 kg Intake: IV 1000 / 1000 1050 / 1050 50 / 50 NS Inj 1,000 ML @ 100 mls/hr IV 900 / 900 1000 / 1000 .CONT .Q10H [facility] Rx#:[id number] Ancef 2 GM Premix Inj 2 gm In 100 / 100 50 / 50 50 / 50 50 ml @ 100 mls/hr IV.SIG Q8H [facility] Rx#:[id number] Oral 260 / 260 Output: Urine 875 / 875 Urine Amount (Catheter) 2300 / 2300 850 / 850 Indwelling Urethral Catheter 2300 / 2300 850 / 850 Wound Drainage 0 / 0 # 1 Wallace 0 / 0 Result Diagrams: 03/08/18 05:33 03/08/18 05:33 Other Results: NAD RRR Clear lungs Abd soft NT Talia scrotal drain removed + post op bruising of the scrotum and penis. Dressing changed Medications and IVs: Active Medications Generic Name Dose Route Start Last Admin Trade Name Freq PRN Reason Stop Dose Admin Acetaminophen 650 mg 03/07/18 04:04 Tylenol PO Q4H PRN Temp > 100.4 Al Hydroxide/Mg Hydroxide 30 ml 03/07/18 04:04 Milk Of Magnesia Liq PO Q12H PRN Mild Constipation Albuterol 2.5 mg 03/07/18 16:00 03/08/18 13:35 Albuterol Neb (Elena) NEB 2.5 mg Q6HR NEB [facility] Administration Atorvastatin Calcium 5 mg 03/09/18 09:00 Lipitor PO EVERY OTHER DAY [facility] Bisacodyl 10 mg 03/07/18 04:04 Dulcolax Supp RECTAL DAILY PRN SEVERE CONSITIPATION Budesonide/Formoterol Fumarate 2 puff 03/07/18 09:00 03/08/18 09:02 Symbicort 160/4.5 Mcg Inh INH 2 puff BID [facility] Administration Furosemide 20 mg 03/07/18 09:00 03/08/18 09:00 Lasix PO 20 mg DAILY [facility] Administration Sodium Chloride 1,000 mls @ 100 mls/hr 03/07/18 04:15 03/08/18 03:57 Ns Inj IV.CONT 100 mls/hr .Q10H [facility] Administration Cefazolin Sodium/Dextrose 2 gm in 50 mls @ 100 mls/hr 03/07/18 07:00 07:32 Ancef 2 Gm Premix Inj IV.SIG 03/08/18 23:29 Infused Q8H [facility] Infusion Lactulose 30 ml 03/07/18 04:04 Lactulose Liq PO DAILY PRN SEVERE CONSITIPATION Losartan Potassium 25 mg 03/07/18 09:00 03/08/18 09:00 Cozaar PO 25 mg DAILY [facility] Administration Morphine Sulfate 2 mg 03/07/18 04:02 Morphine Inj IV.PUSH Q4H PRN PAIN 6-10 Nebivolol 5 mg 03/07/18 09:00 03/08/18 09:00 Bystolic PO 5 mg DAILY [facility] Administration Ondansetron HCl 4 mg 03/07/18 04:04 Zofran Inj IV.PUSH Q6H PRN NAUSEA OR VOMITING Oxycodone/Acetaminophen 2 tab 03/07/18 06:39 03/08/18 11:18 Percocet 5/325 Mg PO 2 tab Q6H PRN Administration PAIN 1-10 AND/OR FEVER >101F Pantoprazole Sodium 40 mg 03/07/18 09:00 03/08/18 09:00 Protonix PO 40 mg DAILY [facility] Administration Pt Own: Tiotropium 0 each 03/07/18 09:00 [place] ( Spiriva INH Respimat) 2.5mcg/ DAILY [facility] Actuation Mist Senna/Docusate Sodium 1 tab 03/07/18 09:00 03/08/18 09:00 [place]-Colace PO 1 tab BID [facility] Administration Sennosides 17.2 mg 03/07/18 04:04 Senokot PO Q12H PRN Moderate Constipation Sodium Chloride 2 ml 03/07/18 09:00 03/08/18 09:01 Ns Flush IV.FLUSH Not Given BID [facility] Sodium Chloride 2 ml 03/07/18 04:47 Ns Flush IV.FLUSH PRN PRN FLUSH AFTER USING IV ACCESS Spironolactone 25 mg 03/07/18 09:00 03/08/18 09:00 Aldactone PO 25 mg DAILY [facility] Administration Tiotropium [place] 18 mcg 03/07/18 14:00 03/08/18 09:01 Spiriva 18 Mcg Inh INH 18 mcg DAILY [facility] Administration Vitamin D 2,000 unit 03/07/18 13:30 03/08/18 09:00 Vitamin D3 PO 2,000 unit DAILY [facility] Administration Assessment and Plan - Plan - Continue care as per primary team - Wallace scrotal drain removed - dressing changed - Keep pt overnight and d/c tomorrow - Grant to be removed prior to d/e - Chnage scrotal dressing before d/c - Pt to change it daily at home until scrotal drain opening is closed - Pt needs a jock strap to wear when goes home to keep penis elevated and for scrotal support Follow up with Dr Delgado and Dr Mcneil in 1 week in clinic Discussed Condition With: Dr Mcneil attending
--- NOTE | 2018-03-08 16:02 | P.PN ---
Subjective Interval history: The patient is in the chair he appears in not acute distress at this time. However he is asking multiple questions regarding the surgery. Family he is at bedside. Patient and family with multiple questions all answered to the best of my ability. Patient reports the pain in his scrotum is better controlled especially after the surgery and he is taking less pain medications. He however complains of constipation. Says he has bleeding to the scrotal side on the right right side and dressing was applied to reinforced. Otherwise denies any fever or chills. No nausea vomiting. Physical Exam Vital signs: Vital Signs 03/07/18 16:00 03/07/18 16:44 03/07/18 20:00 Temperature 97.9 F 98.5 F Pulse Rate 64 77 71 Respiratory Rate 18 16 18 Blood Pressure 113/63 105/53 L Pulse Oximetry 96 94 L 03/07/18 20:36 03/08/18 00:00 03/08/18 07:00 Temperature 98.2 F Pulse Rate 71 68 71 Respiratory Rate 15 15 20 Blood Pressure 104/58 L Pulse Oximetry 94 L 03/08/18 08:00 03/08/18 08:16 03/08/18 12:00 Temperature 97.8 F 98.5 F Pulse Rate 67 66 Respiratory Rate 19 18 Blood Pressure 121/60 116/53 L Pulse Oximetry 93 L 94 L 95 03/08/18 14:00 Temperature Pulse Rate 78 Respiratory Rate 24 Blood Pressure Pulse Oximetry Intake & Output 03/07/18 03/08/18 03/08/18 18:59 06:59 18:59 Intake Total 1000 / 1000 1310 / 1310 50 / 50 Output Total 2300 / 2300 1725 / 1725 Balance -1300 / -1300 -415 / -415 50 / 50 Weight 96.7 kg Intake: IV 1000 / 1000 1050 / 1050 50 / 50 NS Inj 1,000 ML @ 100 mls/hr IV 900 / 900 1000 / 1000 .CONT .Q10H [facility] Rx#:[id number] Ancef 2 GM Premix Inj 2 gm In 100 / 100 50 / 50 50 / 50 50 ml @ 100 mls/hr IV.SIG Q8H [facility] Rx#:[id number] Oral 260 / 260 Output: Urine 875 / 875 Urine Amount (Catheter) 2300 / 2300 850 / 850 Indwelling Urethral Catheter 2300 / 2300 850 / 850 Wound Drainage 0 / 0 # 1 [place] 0 / 0 Narrative: GENERAL: 58-year-old male appears in not acute distress. CARDIOVASCULAR: Regular rate and rhythm. RESPIRATORY: No accessory muscle use. Clear to auscultation. Breath sounds equal bilaterally. GASTROINTESTINAL: Abdomen soft, non-tender, nondistended. Hepatic and splenic margins not palpable. GENITOURINARY: Dressing applied to right scrotal side with some blood however reinforced with more gauze. Grant in place with clear urine. Drain in place. MUSCULOSKELETAL: Extremities without clubbing, cyanosis, or edema. No obvious deformities. NEUROLOGICAL: Awake and alert. No obvious cranial nerve deficits. Motor grossly within normal limits. Five out of 5 muscle strength in the arms and legs. Normal speech. PSYCHIATRIC: Appropriate mood and affect; insight and judgment normal. - Urinary Catheter Management Indwelling Urethral Catheter Cath placed during this visit: yes Reason for continuing: Hourly intake/output Insertion date: 03/07/18 Results - Labs CBC & Chem 7: 03/08/18 05:33 03/08/18 05:33 Laboratory Results - last 24 hr 03/08/18 03/08/18 05:33 05:33 WBC 5.4 RBC 3.36 L Hgb 11.2 L D Hct 32.7 L MCV 97.2 MCH 33.3 MCHC 34.3 RDW 13.1 Plt Count 131 L MPV 8.4 Neut % (Auto) 67.4 Lymph % (Auto) 20.8 [place] % (Auto) 9.9 H Eos % (Auto) 1.5 Baso % (Auto) 0.4 Neut # (Auto) 3.6 Lymph # (Auto) 1.1 [place] # (Auto) 0.5 Eos # (Auto) 0.1 Baso # (Auto) 0.0 WBC Differential . Differential Comment Auto diff final Sodium 142 Potassium 4.1 Chloride 109 H Carbon Dioxide 29.1 Anion Gap 4 L BUN 11 Creatinine 0.88 Estimated GFR 88 L Random Glucose 95 Calcium 8.2 L Total Bilirubin 0.3 AST 14 L ALT 27 Alkaline Phosphatase 43 L Total Protein 5.6 L Albumin 3.2 L Assessment and Plan - Assessment (1) Penile fracture Code(s): S39.840A - Fracture of corpus cavernosum penis, initial encounter Status: Inactive (2) Hypertension Code(s): I10 - Essential (primary) hypertension Status: Acute (3) COPD (chronic obstructive pulmonary disease) Code(s): J44.9 - Chronic obstructive pulmonary disease, unspecified Status: Acute (4) On home O2 Code(s): Z99.81 - Dependence on supplemental oxygen Status: Acute (5) Vitamin D deficiency Code(s): E55.9 - Vitamin D deficiency, unspecified Status: Acute - Plan Penile fracture Urology consulted recommendations appreciated. Patient is status post surgery on 03/[address] Mcneil Continue Grant catheter placement for now Anti-inflammatory medication for any pain and swelling - hold cialis Hypertension, HLD Continue furosemide for fluid balance - Continue spinal lactone 25 mg daily Continue nebivolol 5 mg daily - Continue statin 5mg qOD COPD, not in exacerbation at this time oxygen saturation between 88-92%. Patient home regimen is 2 L of nasal cannula oxygen at bedtime Home regimen includes albuterol nebulizer 4 times daily with Tiotropium qD Psychiatry: Alcohol use No evidence of acute alcohol withdrawal on physical examination as patient did not demonstrate asterixis. Patient denied nausea, vomiting, chest pain, shortness of breath, diaphoresis. Continue to monitor for signs of acute alcohol withdrawal and consider addition of ciwa if needed CODE STATUS: Full code Disposition: Medical service and possible discharge in the morning with eventual urology follow up outpatient DVT prophylaxis: SCD ( penile hemorrhage)
[2018-03-09] MEDS: ceFAZolin 2 GM Premix Inj 2 GM/50 ML PIGGYBACK IV.SIG SCH (00:27)
[2018-03-09] MEDS: Senna/Docusate Sodium 8.6/50 MG Tablet PO SCH (08:17)
[2018-03-09] MEDS: Spironolactone 25 MG Tablet PO SCH (08:17)
[2018-03-09] MEDS: Furosemide 20 MG Tablet PO SCH (08:17)
[2018-03-09] MEDS: Sod Chloride 0.9% Inj 1,000 ML IV.CONT SCH (08:18)
[2018-03-09] MEDS: Budesonide-Formoterol 160/4.5 MCG 6 GM Inhaler INH SCH (08:19)
[2018-03-09] MEDS: Tiotropium Bromide 18 MCG/ACT Inhaler INH SCH (08:19)
[2018-03-09] MEDS: Sodium Chloride 0.9% 2 ML Flush BID IV.FLUSH SCH (08:19)
--- NOTE | 2018-03-09 09:33 | P.DS ---
Date of admission: 03/07/18 04:02 Primary care physician: UNKNOWN Brief History from admission: Report of-year-old male, prostate cancer status post prostatectomy, hypertension , and reflux disease presenting to emergency department as a transfer from the [place] for acute penile pain. Patient reports recent intercourse day prior with at which point he noted that he had recently taken medication for erectile dysfunction shortly afterward developed pain and swelling in the penis area which did not resolve prompting him to seek medical attention. In emergency department patient was evaluated by urology and taken urgently for penile fracture repair with placement of drainage tubing and Schmidt catheter. At this moment patient is denying pain, nausea, vomiting, fever, or chills. Review of systems also negative for chest pain, wheezing, shortness of breath, back pain. DS: Diagnosis - Discharge Diagnosis (1) Penile fracture Status: Inactive (2) Hypertension Status: Acute (3) COPD (chronic obstructive pulmonary disease) Status: Acute (4) On home O2 Status: Acute (5) Vitamin D deficiency Status: Acute DS: Medications - Discharge Medications Prescriptions: oxycodone-acetaminophen [Percocet] 1 tab PO Q4-6H PRN #7 tab PRN Reason: pain management sennosides-docusate sodium [Senna Plus] 1 tab PO BID #60 tab DS: Summary Hospital Course: Penile fracture Urology consulted recommendations appreciated. Patient is status post surgery on 03/[address] Mcneil DC Schmidt catheter and al;so drain DCd. Patient is healing well. Cleared bu urology for DC to follow up as OP with urology Anti-inflammatory medication for any pain and swelling - hold cialis - Pain controlled on pain meds Hypertension, HLD Continue furosemide for fluid balance - Continue spinal lactone 25 mg daily Continue nebivolol 5 mg daily - Continue statin 5mg qOD COPD, not in exacerbation at this time oxygen saturation between 88-92%. Patient home regimen is 2 L of nasal cannula oxygen at bedtime Home regimen includes albuterol nebulizer 4 times daily with Tiotropium qD Psychiatry: Alcohol use No evidence of acute alcohol withdrawal on physical examination as patient did not demonstrate asterixis. Patient denied nausea, vomiting, chest pain, shortness of breath, diaphoresis. Continue to monitor for signs of acute alcohol withdrawal and consider addition of ciwa if needed CODE STATUS: Full code Disposition: Medical service and possible discharge in the morning with eventual urology follow up outpatient DVT prophylaxis: SCD ( penile hemorrhage) Improved, DC home in stabel condition to follow up as OP with PCP and consultants. [employer] Prescription Drug Monitoring Database has been queried and verified prior to prescribing the controlled substance. Acute pain exception. This patient has normal, predicted, physiological, and time limited response to an adverse mechanical stimulus associated with surgery, trauma, or acute illness as described in my notes. There is a lack of alternative treatment options other than to include the prescribed narcotic treatment for this condition. - Time Spent with Patient Total time spent providing and/or coordinating discharge services: Greater than 30 minutes - Quality: VTE Deep Vein Thrombosis/Pulmonary Embolism Present on Admission: No Exam Vital signs: Vital Signs 03/08/18 12:00 03/08/18 14:00 03/08/18 16:00 Temperature 98.5 F 98.1 F Pulse Rate 66 78 71 Respiratory Rate 18 24 19 Blood Pressure 116/53 L 116/55 L Pulse Oximetry 95 95 03/08/18 17:00 03/08/18 20:00 03/08/18 21:20 Temperature 98.2 F Pulse Rate 70 75 67 Respiratory Rate 20 17 18 Blood Pressure 152/67 H Pulse Oximetry 94 L 96 03/09/18 00:00 03/09/18 04:05 03/09/18 08:00 Temperature 98.0 F 98.1 F Pulse Rate 84 81 81 Respiratory Rate 17 16 19 Blood Pressure 119/58 L 120/74 Pulse Oximetry 95 95 03/09/18 09:31 Temperature Pulse Rate Respiratory Rate Blood Pressure Pulse Oximetry 95 Intake & Output 03/08/18 03/09/18 03/09/18 18:59 06:59 18:59 Intake Total 2300 / 2300 1050 / 1050 Output Total 1000 / 1000 2300 / 2300 Balance 1300 / 1300 -1250 / -1250 Weight 99.5 kg Intake: IV 1100 / 1100 50 / 50 NS Inj 1,000 ML @ 100 mls/hr IV 1000 / 1000 .CONT .Q10H ALEX[facility] Rx#:[id number] Ancef 2 GM Premix Inj 2 gm In 100 / 100 50 / 50 50 ml @ 100 mls/hr IV.SIG Q8H ALEX[facility] Rx#:[id number] Oral 1200 / 1200 1000 / 1000 Output: Urine 1000 / 1000 2300 / 2300 Other: # Bowel Movements 1 1 Narrative: GENERAL: 58-year-old male appears in not acute distress. CARDIOVASCULAR: Regular rate and rhythm. RESPIRATORY: No accessory muscle use. Clear to auscultation. Breath sounds equal bilaterally. GASTROINTESTINAL: Abdomen soft, non-tender, nondistended. Hepatic and splenic margins not palpable. GENITOURINARY: Dressing in place c/d/i. Incision intact, healing well. Drain and schmidt removed. Good urine OP, urine is clear no blood. MUSCULOSKELETAL: Extremities without clubbing, cyanosis, or edema. No obvious deformities. NEUROLOGICAL: Awake and alert. No obvious cranial nerve deficits. Motor grossly within normal limits. Five out of 5 muscle strength in the arms and legs. Normal speech. PSYCHIATRIC: Appropriate mood and affect; insight and judgment normal. Results Procedures completed during hospitalization: status post surgery on 03/[address] Mcneil urology - Impressions ITS Impressions Pelvis MRI 03/07/18 01:21 CONCLUSION: 1. 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 Significant surrounding hemorrhage and edema. Discharge Plan - Discharge Disposition Patient Disposition: Discharge Home - Discharge Condition Condition: Stable - Discharge Order Discharge Orders: Discharge Order (Routine); Ordered 03/09/18 Ordered By: Nguyen Smith - Discharge Details Anticipated Discharge Date: 03/09/18 - Physicians Team Primary Care Provider: UNKNOWN, Attending Provider: Nguyen Smith Other Providers: Lio Mcneil MD
== END 2018-03-09 12:10 | disposition home or self-care (01) ==
LOC: NEPE 01:07 → NEDA 01:07 → N07 04:24
PROVIDERS: ADMIT Hospitalist; ATTEND Hospitalist
DX: S39.840A Fracture of corpus cavernosum penis, initial encounter; J44.9 Chronic obstructive pulmonary disease, unspecified; Z87.891 Personal history of nicotine dependence; Z79.899 Other long term (current) drug therapy; E78.5 Hyperlipidemia, unspecified; I50.9 Heart failure, unspecified; N52.9 Male erectile dysfunction, unspecified; Z99.81 Dependence on supplemental oxygen; C61 Malignant neoplasm of prostate; Z90.79 Acquired absence of other genital organ(s); E55.9 Vitamin D deficiency, unspecified; K59.00 Constipation, unspecified; I11.0 Hypertensive heart disease with heart failure; K21.9 Gastro-esophageal reflux disease without esophagitis